=== PATIENT | male | born 1985 ===

== ENCOUNTER 2020-10-02 19:02 | Emergency (ER) | payer BC, OTHER ==
[2020-10-02] MEDS ORDERED: Pepcid 20 MG VIAL IV ONE ×2 (19:24→19:38)
[2020-10-02] MEDS ORDERED: BENADRYL 50 MG/ML IV ONE (19:24)
[2020-10-02] MEDS ORDERED: solu-MEDROL 125 MG, Sterile H2O 10 ml 2 ML IV ONE ×2 (19:24)
[2020-10-02] MEDS ORDERED: EPINEPHRINE 1MG/ML AMP IM ONE (19:24)
[2020-10-02 19:25] VITALS: O2SAT 98
[2020-10-02] MEDS ORDERED: BENADRYL 50 MG/ML ONE (19:38)
[2020-10-02] MEDS ORDERED: Sterile H2O 10 ml IJ ONE (19:38)
[2020-10-02] MEDS ORDERED: EPINEPHRINE 1MG/ML AMP ONE (19:38)
[2020-10-02] MEDS ORDERED: solu-MEDROL ONE (19:38)
--- NOTE | 2020-10-02 19:53 | ERPHSYRPT ---
- History of Present Illness Time Seen by Provider: 10/02/20 19:35 Source: patient Exam Limitations: no limitations Physician History: Patient is a 35-year-old male presents to our ED with his significant other for evaluation of a allergic reaction to ground wasps. Patient states both feet were stung by wasps approximately 2 hours prior to arrival. Patient is experiencing a pruritic rash with hives. No respiratory symptomology. No wheezing no throat tightness no intraoral lesions. No abdominal pain or cramping. Patient states he vomited once. He otherwise feels well at this time. Symptoms are mild to moderate in intensity. No specific worsening improving factors. However patient did say he take Benadryl shortly after the incident which may have lessened the current symptoms. Significant other bedside. They voiced no other complaints or concerns at this time. Timing/Duration: today Severity: moderate Modifying Factors: Improves With: medication ([place] may have helped.) Associated Symptoms: nausea, vomiting Allergies/Adverse Reactions: hornet venom Allergy (Severe, Verified 10/02/20 19:26) Anaphylactic Reaction Penicillins Allergy (Intermediate, Verified 10/02/20 19:26) Rash Home Medications: ALPRAZolam 1 MG [Xanax 1 mg] 1 mg PO TID 10/02/20 [History] - Review of Systems Constitutional: No Symptoms, No Fever, No Chills Eyes: No Symptoms Ears, Nose, & Throat: No Symptoms Respiratory: No Symptoms, No Cough, No Dyspnea Cardiac: No Symptoms, No Chest Pain, No Edema, No Syncope Abdominal/Gastrointestinal: No Symptoms, No Abdominal Pain, No Nausea, No Vomiting, No Diarrhea Genitourinary Symptoms: No Symptoms, No Dysuria Musculoskeletal: No Symptoms, No Back Pain, No Neck Pain Skin: No Symptoms, No Rash Neurological: No Symptoms, No Dizziness, No Focal Weakness, No Sensory Changes Psychological: No Symptoms Endocrine: No Symptoms Hematologic/Lymphatic: No Symptoms Immunological/Allergic: No Symptoms All Other Systems: Reviewed and Negative - Past Medical History Pertinent Past Medical History: Yes Neurological History: No Pertinent History ENT History: No Pertinent History Cardiac History: No Pertinent History Respiratory History: No Pertinent History Endocrine Medical History: No Pertinent History Musculoskeletal History: Fractures GI Medical History: No Pertinent History History: No Pertinent History Psycho-Social History: Anxiety Male Reproductive Disorders: No Pertinent History Other Medical History: HX FX Collarbone - Past Surgical History Past Surgical History: No Neuro Surgical History: No Pertinent History Cardiac: No Pertinent History Respiratory: No Pertinent History Gastrointestinal: No Pertinent History Genitourinary: No Pertinent History Musculoskeletal: No Pertinent History Male Surgical History: No Pertinent History - Social History Drug Use: none - Nursing Vital Signs Nursing Vital Signs: Initial Vital Signs Temperature 97.5 F 10/02/20 19:24 Pulse Rate 93 H 10/02/20 19:24 Respiratory Rate 20 10/02/20 19:24 Blood Pressure 120/86 10/02/20 19:24 O2 Sat by Pulse Oximetry 98 10/02/20 19:24 Pain Scale Pain Intensity 5 - Physical Exam General Appearance: no apparent distress, alert Eye Exam: PERRL/EOMI, eyes nml inspection Ears, Nose, Throat Exam: normal ENT inspection, TMs normal, pharynx normal, moist mucous membranes Neck Exam: normal inspection, non-tender, supple, full range of motion Respiratory Exam: normal breath sounds, lungs clear, No respiratory distress Cardiovascular Exam: regular rate/rhythm, normal heart sounds, normal peripheral pulses Gastrointestinal/Abdomen Exam: soft, normal bowel sounds, No tenderness, No mass Back Exam: normal inspection, normal range of motion, No CVA tenderness, No vertebral tenderness Extremity Exam: normal inspection, normal range of motion, pelvis stable Neurologic Exam: alert, oriented x 3, cooperative, normal mood/affect, nml cerebellar function, nml station & gait, sensation nml, No motor deficits Skin Exam: normal color, warm, dry, No rash Lymphatic Exam: No adenopathy SpO2 Interpretation: normal SpO2: 98 O2 Delivery: Room Air Ordered Tests: Active Orders 24 hr Category Date Time Status Design Consultant STAT Care 10/02/20 19:24 Active IV Insertion STAT Care 10/02/20 19:24 Active Pulse Oximetry (ED) STAT Care 10/02/20 19:24 Active Medication Summary Discontinued Medications Generic Name Dose Route Start Last Admin Trade Name Nabilq PRN Reason Stop Dose Admin Methylprednisolone Sodium 0 mg 10/02/20 19:24 10/02/20 19:39 Succinate 125 mg/ Sterile IV 10/02/20 19:25 125 mg Water 2 ml STAT ONE Administration Diphenhydramine HCl 25 mg 10/02/20 19:24 10/02/20 19:39 Benadryl 50 Mg/Ml IV 10/02/20 19:25 25 mg STAT ONE Administration Diphenhydramine HCl Confirm 10/02/20 19:38 Benadryl 50 Mg/Ml Administered 10/02/20 19:39 Dose 50 mg .ROUTE .STK-MED ONE Epinephrine HCl 0.3 mg 10/02/20 19:24 10/02/20 19:41 Epinephrine 1mg/Ml Amp IM 10/02/20 19:25 0.3 mg STAT ONE Administration Epinephrine HCl Confirm 10/02/20 19:38 Epinephrine 1mg/Ml Amp Administered 10/02/20 19:39 Dose 1 mg .ROUTE .STK-MED ONE Famotidine 20 mg 10/02/20 19:24 10/02/20 19:40 Pepcid 20 Mg Vial IV 10/02/20 19:25 20 mg STAT ONE Administration Famotidine Confirm 10/02/20 19:38 Pepcid 20 Mg Vial Administered 10/02/20 19:39 Dose 20 mg IV .STK-MED ONE Methylprednisolone Sodium Succinate Confirm 10/02/20 19:38 Solu-Medrol Administered 10/02/20 19:39 Dose 125 mg .ROUTE .STK-MED ONE Sterile Water Confirm 10/02/20 19:38 Sterile H2o 10 Ml Administered 10/02/20 19:39 Dose 10 ml IJ .STK-MED ONE - Progress Progress: improved Progress Note: Patient reassessed. Pruritic rash and hives resolved. Vital stable. Patient currently asymptomatic. Will discharge home with EpiPen autoinjector, prednisone and Pepcid. He has Benadryl at home. Patient agrees to follow-up with his primary care doctor within 48 hours for reevaluation. 10/02/20 21:27 Counseled pt/family regarding: diagnosis, need for follow-up - Departure Departure Disposition: Home Clinical Impression: Allergic reaction, Hives, Pruritic rash Condition: Stable Critical Care Time: No Referrals: DEIRDRE SHEARER [Primary Care Provider] - JESUS VALDERRAMA MD [ACTIVE STAFF] - Additional Instructions: Discharge/Care Plan KENN MCKEON was seen on 10/02/20 in the Emergency Room. The patient was counseled regarding Diagnosis,Lab results, Imaging studies, need for follow up and when to return to the Emergency Room. Prescriptions given: Discharge Note I have spoken with the patient and/or caregivers. I have explained the patient's condition, diagnosis and treatment plan based on the information available to me at this time. I have answered the patient's and/or caregiver's questions and addressed any concerns. The patient and/or caregivers have as good understanding of the patient's diagnosis, condition and treatment plan as can be expected at this point. The vital signs have been stable. The patient's condition is stable and appropriate for discharge from the emergency department. The patient will pursue further outpatient evaluation with the primary care physician or other designated or consulting physician as outlined in the disc harge instructions. The patient and/or caregivers are agreeable to this plan of care and follow-up instructions have been explained in detail. The patient and/or caregivers have received these instruction. The patient/and or caregivers are aware that any significant change in condition or worsening of symptoms should prompt an immediate return to this or the closest emergency department or call 911. Prescriptions: Prednisone 10 mg [Deltasone 10 mg] 40 mg PO DAILY 3 Days #12 tablet Epinephrine [Epipen] 0.3 mg IM DAILY 1 Days #2 ml Famotidine 20 mg PO BID 7 Days #14 tablet
[2020-10-02 21:03] VITALS: BP 119/76; PULSE 77
== END 2020-10-02 22:01 | disposition home or self-care (01) ==
LOC: ED 19:02
DX: T78.40XA Allergy, unspecified, initial encounter (principal); L50.9 Urticaria, unspecified
CPT/HCPCS: 36000; 93041; 94760; 96372; 96374; 96375; 99284; J0171; J1200; J2930